=== PATIENT | male | born 1985 | race Two or more races ===

== ENCOUNTER 2022-02-03 11:13 | Emergency (ER) | payer MEDICARE, MEDICAID, SELFPAY ==
--- NOTE | ~2022-02-03 | US_ITS ---
EXAMINATION: US SCROTUM CLINICAL INFORMATION: Testicular pain left. COMPARISON: None TECHNIQUE: A sonogram of the scrotum was performed assessing montoya-scale appearance and color Doppler flow. Spectral Doppler analysis of the arterial and venous flow were performed in the testes bilaterally. FINDINGS: The right testicle is measuring 3 x 2 x 2.7 cm. Volume 8 mL. The left testicle is measuring 3.2 x 2.1 x 3 cm. Volume 10 mL. Importantly the testicular vascularity is present bilaterally and is felt to be equal. There is no evidence of a testicular mass. No suspicious intratesticular fluid collection is seen. The images submitted of the epididymal structures are grossly within normal limits. There are bilateral small hydroceles present. US/US scrotum IMPRESSION: Bilateral small hydroceles are present. Importantly the testicles appear to be within normal limits.
--- NOTE | ~2022-02-03 | US_ITS ---
EXAMINATION: US SCROTUM CLINICAL INFORMATION: Testicular pain left. COMPARISON: None TECHNIQUE: A sonogram of the scrotum was performed assessing montoya-scale appearance and color Doppler flow. Spectral Doppler analysis of the arterial and venous flow were performed in the testes bilaterally. FINDINGS: The right testicle is measuring 3 x 2 x 2.7 cm. Volume 8 mL. The left testicle is measuring 3.2 x 2.1 x 3 cm. Volume 10 mL. Importantly the testicular vascularity is present bilaterally and is felt to be equal. There is no evidence of a testicular mass. No suspicious intratesticular fluid collection is seen. The images submitted of the epididymal structures are grossly within normal limits. There are bilateral small hydroceles present. US/US scrotum doppler IMPRESSION: Bilateral small hydroceles are present. Importantly the testicles appear to be within normal limits.
--- NOTE | ~2022-02-03 | XR_ITS ---
EXAMINATION: XR ELBOW, RIGHT CLINICAL INFORMATION: Mass right elbow. COMPARISON: None TECHNIQUE: AP, lateral, and oblique views of the right elbow. FINDINGS: There is mild soft tissue thickening along the olecranon process, likely cellulitis or edema. No additional soft tissue abnormality seen. No acute fracture or joint effusion. Alignment is anatomic. Joint spaces are maintained. XR/XR elbow RT 2V IMPRESSION: Soft tissue thickening along the olecranon process/posterior elbow likely cellulitis. No focal lesion seen.
--- NOTE | ~2022-02-03 | CT_ITS ---
Indication: Trauma EXAMINATION: Multiple studies, CT cervical spine, CT brain, CT lumbar and thoracic spine. Axial imaging with coronal and sagittal reformatted images. This CT examination was performed using dose optimization techniques as appropriate, variously including the following: *Automated exposure control *Adjustment of mA and/or kV according to patient size (this includes techniques or standardized protocols for targeted exams where dose is matched to indication/reason for exam; i.e. extremities or head) *Use of iterative reconstruction technique. Radiation dose 895, 767, 847 and 1166. Cervical spine; Limited from motion and patient body habitus involving the mid to lower cervical region. No fracture or dislocation is seen on the imaging submitted. There is reversal of the normal lordosis which may be due to position or spasm. CT brain; No midline shift. No mass effect. There is no hemorrhage. The basal cisterns appear patent. The posterior fossa is grossly within normal limits. No extra-axial collection. There is no fracture on the bone windows. Lumbar sacral spine; Lack of intrathecal contrast limits this exam. Evaluation of disc or nerve roots or cord is not adequately obtained here. There is no evidence for fracture. There is no listhesis or compression injury. Thoracic spine; No fracture is seen. No compression injury. No listhesis. Some early degeneration at the thoracolumbar junction. Some minimal calcification of the posterior disc level at T3-4 is not felt to be acute. Etiology indeterminate CT/CT thoracic spine wo con IMPRESSION: Multiple studies. Some limitation from artifact likely due to motion and patient body habitus. No acute finding on the imaging submitted
--- NOTE | ~2022-02-03 | NM_ITS ---
EXAMINATION: PULMONARY PERFUSION STUDY CLINICAL INFORMATION: Syncope, elevated d-dimer, CTA nondiagnostic. COMPARISON: No previous lung scan is available for comparison. Nondiagnostic CT angiogram of the chest dated 02/03/2022 is available for comparison. TECHNIQUE: Following the intravenous injection of 3.6 mCi Tc-99m MAA, the lungs were imaged in the anterior and posterior, left and right lateral and YI, KELLY, LPO, and RPO projections using a gamma scintillation camera. FINDINGS: No segmental perfusion defects are present. There is homogeneous distribution of activity bilaterally. There are no focal anatomic appearing perfusion defects present. NM/NM pul perfusion IMPRESSION: Normal radionuclide lung perfusion scan.
--- NOTE | ~2022-02-03 | CT_ITS ---
EXAMINATION: CT ANGIOGRAM OF THE CHEST WITH AND WITHOUT CONTRAST (CT PULMONARY ANGIOGRAM FOR PE) CLINICAL INFORMATION: Reason for Exam syncope, sob COMPARISON: None TECHNIQUE: Prior to contrast administration, noncontrast localization images were obtained. Subsequently, multidetector volumetric imaging was performed from the thoracic inlet to below the diaphragms following the administration of 80 mL Omnipaque 350 intravenous contrast. No contrast reaction reported Sagittal, coronal, and MIP oblique sagittal reformatted images were obtained on the CT workstation, uploaded to PACS, and reviewed. This CT examination was performed using dose optimization techniques as appropriate, variously including the following: *Automated exposure control *Adjustment of mA and/or kV according to patient size (this includes techniques or standardized protocols for targeted exams where dose is matched to indication/reason for exam; i.e. extremities or head) *Use of iterative reconstruction technique Total exam dose-length product 596 mGy-cm FINDINGS: QUALITY OF STUDY/CONTRAST BOLUS: Unsatisfactory. No significant residual contrast within the pulmonary arteries. This is a late acquisition. PULMONARY ARTERIES: As described above cannot exclude PE The visualized aorta is grossly within normal limits. The thoracic inlet is felt to be within normal limits. The axillary regions are unremarkable. The partially visualized upper abdominal structures are unremarkable. Centrally there is no bulky adenopathy. Imaging lung marie. Right lung; There is no infiltrate. No effusion. Left lung; There is no infiltrate. There is no effusion. Review of the bone windows does not demonstrate a suspicious finding. CT/CT angio chest PE protocol IMPRESSION: This exam is nondiagnostic for pulmonary embolism. The requisition was obtained late and there is no significant contrast in the pulmonary arteries to allow a diagnosis. No significant infiltrate or effusion is seen. VTE: Nondiagnostic
[2022-02-03 11:42] VITALS: BP 137/86; PULSE 113; RESP 18; TEMP 37.4; O2SAT 97; BMI 42.0
--- NOTE | 2022-02-03 12:02 | PC.NURSE ---
verfied with nurse Violetta, at [facility] pt allergic to Cipro and Seroquel
--- NOTE | 2022-02-03 12:27 | ECG_ITS ---
Test Reason : SYNCOPE Blood Pressure : / mmHG Vent. Rate : 105 BPM Atrial Rate : 105 BPM P-R Int : 146 ms QRS Dur : 070 ms QT Int : 314 ms P-R-T Axes : 047 -14 041 degrees QTc Int : 415 ms Sinus tachycardia Otherwise normal ECG When compared with ECG of 23-JAN-2010 14:34, No significant change was found Referred By: Breanna Colindres Electronically Signed By:NIKO LEIVA
[2022-02-03 13:11] VITALS: BP 115/77; BP 129/77; PULSE 101; PULSE 103
[2022-02-03 13:12] VITALS: BP 115/77; BP 119/75; PULSE 103; PULSE 108; RESP 18; TEMP 37.3; O2SAT 98
[2022-02-03] MEDS: 0.9 % Sodium Chloride 1,000 ML 999 ML IV (13:24)
--- NOTE | 2022-02-03 13:27 | ED.GENADULT ---
HPI - General Adult General Chief complaint: Back Pain/Injury Stated complaint: fall pain from neck to buttocks diff breathing Time Seen by Provider: 02/03/22 11:31 Source: patient Mode of arrival: ambulatory Limitations: no limitations History of Present Illness HPI narrative: 36-year-old male presents for multiple complaints. Patient states that he has had pain from his neck down to his buttocks, for the last 2-3 weeks. At times he feels short of breath from the pain. Patient has also had swelling on his right elbow. States that 4 days ago he was in a hot shower, and he lost consciousness. When he came to he was on the floor. Patient states he has had not had fevers, but has a headache, he feels that his bones ache, he has had chills. For the last 2 days patient has had multiple episodes of diarrhea, tells me he has had 12 episodes of diarrhea in the last 2 days. In addition, patient states he has left testicular pain that has been going on for 2 months. No concerns for STDs. No fever, no leg weakness, no saddle paresthesias, no urinary incontinence or bowel incontinence, no urinary retention, no history of IV drug use, no history of cancer. No abdominal pain, no nausea or vomiting. No chest pain, no shortness of breath. Not currently lightheaded or dizzy. 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 States he used to see pain management and do physical therapy. No spinal surgery. Related Data Previous Rx's Medication Instructions Recorded doxycycline hyclate 100 mg tablet 100 mg PO BID 10 days #20 tabs 02/03/22 ketorolac 10 mg tablet 10 mg PO TID 5 days #15 tabs 02/03/22 Allergies Allergy/AdvReac Type Severity Reaction Status Date / Time ciprofloxacin Allergy Swelling Verified 02/03/22 12:02 quetiapine Allergy Unknown Verified 02/03/22 12:02 Review of Systems Constitutional: Constitutional: Reports body ache(s), Reports chills, Reports fatigue, Denies fever(s), Reports headache(s), Denies malaise and Denies weakness Eyes: Eyes: Denies blurry vision and Denies diplopia ENT: Reports Normal hearing present, Denies vertigo, Denies dizziness, Denies otalgia, Reports headache(s), Denies mouth pain, Denies post nasal drip, Denies sinus pain, Denies sinus pressure, Denies sore throat and Denies throat swelling Cardiovascular: Cardiovascular: Denies chest pain, Denies chest pain at rest, Denies chest pain with activity, Reports syncope, Denies leg edema, Denies lightheadedness, Denies Loss of Consciousness, Denies radiating jaw, neck or arm pain, Denies palpitations and Reports dyspnea (from pain) Respiratory: Respiratory: Denies chest congestion, Denies cough and Reports dyspnea (from pain) Gastrointestinal: Gastrointestinal: Denies abdominal pain, Denies melena, Denies hematochezia, Denies constipation, Denies fecal incontinence, Reports diarrhea and Denies vomiting Genitourinary: Genitourinary: Denies oliguria, Denies dysuria, Denies painful ejaculations, Denies penile discharge, Denies scrotal swelling, Reports testicular pain, Denies urinary hesitancy and Denies urinary incontinence Musculoskeletal: Musculoskeletal: Reports back pain, Reports myalgias, Denies numbness and Reports tingling ( Fingers and toes) Integumentary/Breasts: Skin/Breast: Denies swelling and Denies erythema Neurologic: Reports Normal hearing present, Denies Abnormal speech present, Denies confusion, Denies vertigo, Denies dizziness, Reports syncope, Reports headache(s), Denies numbness, Denies Sensory deficit (Neuro), Reports tingling ( Fingers and toes) and Denies weakness Psychiatric: Psychiatric: Denies anxiety, Denies confusion and Denies depression Endocrine: Endocrine: Reports fatigue and Denies palpitations Allergic/Immunologic: Allergic/Immunologic: Denies throat swelling PMFSH Social History Social History Advance Directives: No Advance Directives Information Provided: No Physical Exam ED Vital Signs: Vital Signs - 24 hr 02/03/22 11:42 02/03/22 13:11 02/03/22 13:12 Temperature 99.3 F 99.1 F Pulse Rate 113 H 101 H 103 H Respiratory Rate 18 18 Blood Pressure 137/86 129/77 115/77 Pulse Oximetry 97 98 Oxygen Delivery Method Room Air Room Air 02/03/22 13:11 02/03/22 13:12 02/03/22 15:06 Temperature 99.5 F Pulse Rate 103 H 108 H 93 Respiratory Rate 18 Blood Pressure 115/77 119/75 148/78 H Pulse Oximetry 99 Oxygen Delivery Method Room Air 02/03/22 16:54 Temperature 99.6 F Pulse Rate 89 Respiratory Rate 18 Blood Pressure 110/55 L Pulse Oximetry 99 Oxygen Delivery Method Room Air BMI result Body Mass Index 42.0 Const General: no acute distress, alert and awake; No confusion Nutritional Appearance: obese Orientation/consciousness: patient oriented x3 and No confusion Limitations: no limitations HENMT Head: Yes normal to inspection, Yes normocephalic and Yes atraumatic Ears: hearing grossly normal bilaterally, external ears normal, TM's normal bilaterally and EAC's normal General nose exam: Normal external nose present Face and sinus: Yes normal facial exam and Yes sinuses nontender Mouth: Normal oral and palatal mucosa present Throat: Yes posterior oropharynx normal Eyes Conjunctivae: conjunctivae normal Pupils: Equal, round and reactive pupils present EOM: EOMs intact bilaterally and No Nystagmus present Neck Neck: Yes full ROM, Yes no lymphadenopathy and Yes supple Resp Effort & Inspection: normal respiratory effort and able to speak in complete sentences Auscultation: clear to auscultation bilaterally, no crackles, no rales, no rhonchi and no wheezes Cardio Rate: regular rate Rhythm: regular rhythm Heart sounds: S1 normal heart sound present and S2 normal heart sound present GI Inspection: Yes normal to inspection Palpation (GI): Soft to palpation, nontender, no guarding and not rigid Percussion: Yes normal to percussion Auscultation: normal bowel sounds Back/Spine/Pelvis Cervical Spine: Cervical spine tenderness Thoracic/Lumbar Spine: paraspinal muscle tenderness on the left and on the right, thoraco-lumbar spasm on the left and on the right, thoracic spinal tenderness, lumbar spinal tenderness and No straight leg raise positive Skin Other: warm, red skin right olecranon process with swelling Neuro General: patient oriented x3 and No confusion Cranial nerves: Yes CN's II-XII intact bilaterally, Yes Facial sensation intact/muscles of mastication intact, Yes Equal, round and reactive pupils present, Yes Normal accommodation reflex present, Yes Bilaterally intact EOM present, Yes Nystagmus not present, Yes Normal facial strength present, Yes Midline tongue present, Yes Normal hearing present, Yes Ability to bilaterally rotate head present, Yes Ability to bilaterally elevate shoulders present and No Nystagmus present Cognition (Neuro): normal cognition Speech: No Abnormal speech present Gait exam (Neuro): Normal gait present Motor exam (neuro): 5/5 motor strength present throughout and Pronator motor function not present Sensory Exam: No Sensory deficit (Neuro) Deep tendon reflexes (DTR's): Right brachioradialis reflex intensity grade: 1+, Left brachioradialis reflex intensity grade: 1+, Right patellar reflex intensity grade: 1+ and Left patellar reflex intensity grade: 1+ Coordination: [id number] test normal and [id number] test normal Romberg Test: Negative Pupils: Normal pupillary reactivity/response: bilateral Extrem General: Yes normal to inspection and Yes full ROM Psych Appearance: grossly normal Affect: normal affect Attitude: cooperative Thought process: Normal thought process present Course Course Course Narrative: 36-year-old male presents with multiple complaints including back pain, syncope, left testicular pain, right elbow pain, diarrhea, headache, chills on exam, patient is tachycardic at 105, afebrile, not hypoxic. Patient has a normal neurological exam EKG shows sinus tachycardia at 105, no ischemia lungs clear to auscultation bilaterally, abdomen soft and nontender, patient is tender along his entire bony spine from cervical spine to lumbar spine, also tender in the soft tissues of his bilateral back patient tender in left testicle, no epididymal masses no scrotum swelling, penile lesions, or discharge noted patient has what looks like olecranon bursitis right elbow with cellulits because patient syncopized, will need to do more extensive workup. Will get head CT, CT C-spine, EKG, troponin, D-dimer, labs, flu, COVID, ultrasound left testicle, test for gonorrhea chlamydia. Patient has negative orthostatics Reevaluation(s) Reevaluation #1: patient has a white blood cell count of 14.8, patient has elevated D-dimer at 408. we need to scan patient to rule out PE Reevaluation #2: multiple CT scans show no acute finding, ultrasound of testicles show bilateral hydroceles x-ray right elbow shows olecranon bursitis and cellulitis CTA is non-diagnostic for pulmonary embolism. Patient has elevated ddimer, history of syncope, will order V/Q scan to rule out PE on repeat exam, patient is afebrile at 99.6. Combined with white count this puts him in the SIRS category, will give Tylenol, get lactic, blood cultures Sepsis suspected at this time 17:28, with low grade fever and elevated WBC count. patient's blood pressures remains stable, with a map of 73 ordered Ancef, fluid bolus, awaiting lactic and results of V/Q scan Discussed with Dr Vega, who did not think patient met sepsis, as no organ dysfunction is identified yet. patient negative for gonorrhea chlamydia. Patient COVID and flu negative. Patient just disclosed that he lifted a heavy table wearing 750 lb with someone else earlier this week awaiting lactic and V/Q scan. If both are negative, will send patient home with doxycycline for cellulitis, follow-up with orthopedics for olecranon bursitis, ketorolac for back sprain and cervical muscle sprain, follow-up with urology for bilateral hydrocele, push fluids, Tylenol, return if symptoms worsen Lactic just returned at 0.6; patient is not septic Signed patient out to Dayna Rocha pending V/Q results. FINDINGS: The right testicle is measuring 3 x 2 x 2.7 cm. Volume 8 mL. The left testicle is measuring 3.2 x 2.1 x 3 cm. Volume 10 mL. Importantly the testicular vascularity is present bilaterally and is felt to be equal. There is no evidence of a testicular mass. No suspicious intratesticular fluid collection is seen. The images submitted of the epididymal structures are grossly within normal limits. There are bilateral small hydroceles present. US/US scrotum IMPRESSION: Bilateral small hydroceles are present. ? Importantly the testicles appear to be within normal limits. Cervical spine; Limited from motion and patient body habitus involving the mid to lower cervical region. No fracture or dislocation is seen on the imaging submitted. There is reversal of the normal lordosis which may be due to position or spasm. CT brain; No midline shift. No mass effect. There is no hemorrhage. The basal cisterns appear patent. The posterior fossa is grossly within normal limits. No extra-axial collection. There is no fracture on the bone windows. Lumbar sacral spine; Lack of intrathecal contrast limits this exam. Evaluation of disc or nerve roots or cord is not adequately obtained here. There is no evidence for fracture. There is no listhesis or compression injury. Thoracic spine; No fracture is seen. No compression injury. No listhesis. Some early degeneration at the thoracolumbar junction. Some minimal calcification of the posterior disc level at T3-4 is not felt to be acute. Etiology indeterminate CT/CT cervical spine wo con IMPRESSION: Multiple studies. Some limitation from artifact likely due to motion and patient body habitus. No acute finding on the imaging submitted FINDINGS: There is mild soft tissue thickening along the olecranon process, likely cellulitis or edema. No additional soft tissue abnormality seen. No acute fracture or joint effusion. Alignment is anatomic. Joint spaces are maintained.? XR/XR elbow RT 2V IMPRESSION: Soft tissue thickening along the olecranon process/posterior elbow likely cellulitis. No focal lesion seen. CT/CT angio chest PE protocol IMPRESSION: This exam is nondiagnostic for pulmonary embolism. The requisition was obtained late and there is no significant contrast in the pulmonary arteries to allow a diagnosis. ? No significant infiltrate or effusion is seen. ? VTE: Nondiagnostic Medical Decision Making Lab Data Result diagrams: 02/03/22 13:24 02/03/22 13:24 Labs: Lab Results 02/03/22 02/03/22 02/03/22 Range/Units 13:24 13:24 13:24 WBC 14.8 H (4.8-10.8) X10*3/uL RBC 5.41 (4.60-5.80) X10*6/uL Hgb 15.2 (14.0-18.0) g/dl Hct 47.0 (42.0-52.0) % MCV 86.9 (80.0-98.0) fL MCH 28.1 (27.0-33.0) pg MCHC 32.3 (31.0-36.0) g/dl RDW 13.7 (11.0-16.0) % Plt Count 264 (160-400) X10*3/uL MPV 9.9 (9.4-12.4) fL Immature Gran % (Auto) 1.1 H (0.0-0.4) % Neut % (Auto) 85.4 H (45-73) % Lymph % (Auto) 6.4 L (20-40) % Banner % (Auto) 6.1 (2-11) % Eos % (Auto) 0.5 (0-4) % Baso % (Auto) 0.5 (0-2) % Lymph # (Auto) 1.0 L (1.2-4.9) X10*3/uL Banner # (Auto) 0.9 (0.1-1.2) X10*3/uL Eos # (Auto) 0.1 (0.0-0.4) X10*3/uL Baso # (Auto) 0.1 (0.0-0.2) X10*3/uL Abs Immat Gran (auto) 0.16 H (0.00-0.03) X10*3/uL Absolute Neuts (auto) 12.7 H (2.0-8.3) x10*3/uL Absolute Nucleated RBC 0.000 (0.0-0.012) X10*3/uL Nucleated RBC % (auto) 0.0 (0.0-0.2) /100WBC D-Dimer High Sensitivty 406 NG/ML Sodium 137 (135-145) mmol/L Potassium 4.5 (3.3-5.1) mmol/L Chloride 104 (96-108) mmol/L Carbon Dioxide 25 (22-29) mmol/L Anion Gap 13 (12-20) BUN 8 L (9-16) mg/dL Creatinine 1.00 (0.5-1.4) mg/dL Estim Creat Clear Calc 129.9 Estimated GFR > 60 Random Glucose 95 (60-115) mg/dL Lactic Acid (0.5-2.0) mmol/L Calcium 8.7 (8.4-10.2) mg/dL Total Bilirubin 1.2 H (0.0-1.0) mg/dL AST 13 (5-37) U/L ALT 14 (0-40) U/L Alkaline Phosphatase 122 H (39-117) U/L Troponin I High Sens (<3.5-35.0) ng/L Total Protein 6.7 (6.5-8.0) g/dL Albumin 4.1 (3.5-5.0) g/dL Urine Color Urine Appearance Urine pH (5.0-8.0) Ur Specific [place] (1.005-1.025) Urine Protein (NEG-TRACE) MG/DL Urine Glucose (UA) (NEG) MG/DL Urine Ketones (NEG) MG/DL Urine Blood (NEG) Urine Nitrite (NEG) Ur Leukocyte Esterase (NEG) Chlam trachomat DNA PCR (Not Detect.) COVID-19 (ALEJANDRINA) (Negative) COVID-19 Clin Com Influenza Type A (KUMAR) (Negative) Influenza Type B (KUMAR) (Negative) Influenza A & B Note N.gonorrhoeae DNA (PCR) (Not Detect.) 02/03/22 02/03/22 02/03/22 Range/Units 13:24 13:24 13:24 WBC (4.8-10.8) X10*3/uL RBC (4.60-5.80) X10*6/uL Hgb (14.0-18.0) g/dl Hct (42.0-52.0) % MCV (80.0-98.0) fL MCH (27.0-33.0) pg MCHC (31.0-36.0) g/dl RDW (11.0-16.0) % Plt Count (160-400) X10*3/uL MPV (9.4-12.4) fL Immature Gran % (Auto) (0.0-0.4) % Neut % (Auto) (45-73) % Lymph % (Auto) (20-40) % Banner % (Auto) (2-11) % Eos % (Auto) (0-4) % Baso % (Auto) (0-2) % Lymph # (Auto) (1.2-4.9) X10*3/uL Banner # (Auto) (0.1-1.2) X10*3/uL Eos # (Auto) (0.0-0.4) X10*3/uL Baso # (Auto) (0.0-0.2) X10*3/uL Abs Immat Gran (auto) (0.00-0.03) X10*3/uL Absolute Neuts (auto) (2.0-8.3) x10*3/uL Absolute Nucleated RBC (0.0-0.012) X10*3/uL Nucleated RBC % (auto) (0.0-0.2) /100WBC D-Dimer High Sensitivty NG/ML Sodium (135-145) mmol/L Potassium (3.3-5.1) mmol/L Chloride (96-108) mmol/L Carbon Dioxide (22-29) mmol/L Anion Gap (12-20) BUN (9-16) mg/dL Creatinine (0.5-1.4) mg/dL Estim Creat Clear Calc Estimated GFR Random Glucose (60-115) mg/dL Lactic Acid (0.5-2.0) mmol/L Calcium (8.4-10.2) mg/dL Total Bilirubin (0.0-1.0) mg/dL AST (5-37) U/L ALT (0-40) U/L Alkaline Phosphatase (39-117) U/L Troponin I High Sens 6.6 (<3.5-35.0) ng/L Total Protein (6.5-8.0) g/dL Albumin (3.5-5.0) g/dL Urine Color Urine Appearance Urine pH (5.0-8.0) Ur Specific [place] (1.005-1.025) Urine Protein (NEG-TRACE) MG/DL Urine Glucose (UA) (NEG) MG/DL Urine Ketones (NEG) MG/DL Urine Blood (NEG) Urine Nitrite (NEG) Ur Leukocyte Esterase (NEG) Chlam trachomat DNA PCR (Not Detect.) COVID-19 (ALEJANDRINA) Negative (Negative) COVID-19 Clin Com See Note Influenza Type A (KUMAR) Negative (Negative) Influenza Type B (KUMAR) Negative (Negative) Influenza A & B Note See Note N.gonorrhoeae DNA (PCR) (Not Detect.) 02/03/22 02/03/22 02/03/22 Range/Units 13:53 13:53 18:28 WBC (4.8-10.8) X10*3/uL RBC (4.60-5.80) X10*6/uL Hgb (14.0-18.0) g/dl Hct (42.0-52.0) % MCV (80.0-98.0) fL MCH (27.0-33.0) pg MCHC (31.0-36.0) g/dl RDW (11.0-16.0) % Plt Count (160-400) X10*3/uL MPV (9.4-12.4) fL Immature Gran % (Auto) (0.0-0.4) % Neut % (Auto) (45-73) % Lymph % (Auto) (20-40) % Banner % (Auto) (2-11) % Eos % (Auto) (0-4) % Baso % (Auto) (0-2) % Lymph # (Auto) (1.2-4.9) X10*3/uL Banner # (Auto) (0.1-1.2) X10*3/uL Eos # (Auto) (0.0-0.4) X10*3/uL Baso # (Auto) (0.0-0.2) X10*3/uL Abs Immat Gran (auto) (0.00-0.03) X10*3/uL Absolute Neuts (auto) (2.0-8.3) x10*3/uL Absolute Nucleated RBC (0.0-0.012) X10*3/uL Nucleated RBC % (auto) (0.0-0.2) /100WBC D-Dimer High Sensitivty NG/ML Sodium (135-145) mmol/L Potassium (3.3-5.1) mmol/L Chloride (96-108) mmol/L Carbon Dioxide (22-29) mmol/L Anion Gap (12-20) BUN (9-16) mg/dL Creatinine (0.5-1.4) mg/dL Estim Creat Clear Calc Estimated GFR Random Glucose (60-115) mg/dL Lactic Acid 0.6 (0.5-2.0) mmol/L Calcium (8.4-10.2) mg/dL Total Bilirubin (0.0-1.0) mg/dL AST (5-37) U/L ALT (0-40) U/L Alkaline Phosphatase (39-117) U/L Troponin I High Sens (<3.5-35.0) ng/L Total Protein (6.5-8.0) g/dL Albumin (3.5-5.0) g/dL Urine Color YELLOW Urine Appearance CLEAR Urine pH 6.5 (5.0-8.0) Ur Specific [place] 1.020 (1.005-1.025) Urine Protein NEG (NEG-TRACE) MG/DL Urine Glucose (UA) NEG (NEG) MG/DL Urine Ketones NEG (NEG) MG/DL Urine Blood NEG (NEG) Urine Nitrite NEG (NEG) Ur Leukocyte Esterase NEG (NEG) Chlam trachomat DNA PCR NOT DETECTED (Not Detect.) COVID-19 (ALEJANDRINA) (Negative) COVID-19 Clin Com Influenza Type A (KUMAR) (Negative) Influenza Type B (KUMAR) (Negative) Influenza A & B Note N.gonorrhoeae DNA (PCR) NOT DETECTED (Not Detect.) ECG Data Interpretation: sinus tachycardia at a rate of 105, VT interval 146, QRS 70, QTC 415, normal axis, no ST depressions or elevations, no T-wave abnormalities Discharge Plan Discharge Clinical Impression: Bilateral hydrocele, Cellulitis, Olecranon bursitis of right elbow, Viral illness, Back pain, Cervical muscle strain Patient Disposition: Still a Patient Instructions: Cervical Strain (ED), Hydrocele (ED), Cellulitis (ED), Elbow Bursitis (ED), Gastroenteritis (ED), Back Pain (ED) Additional Instructions: PLease call orthopedics for a follow up appointment for your right elbow. I have referred you, but if you do not hear from them on Sunday, call them at [phone] I have prescribed antibiotics for you, as you have a skin infectionof your elbow. I have also prescibed ketorolac for your back pain. this medicine ketorolac is similar to ibuprofen, so do not take any ibuprofen while you are taking this, no Motrin, Aleve, Excedrin, nothing with ibuprofen I have also referred you to Urology for your testicular hydroceles. They should be calling you, you do not hear from them, please call them at the following number [phone] please drink fluids, take Tylenol, rest, return to emergency room for any new or concerning symptoms Prescriptions: New doxycycline hyclate 100 mg tablet 100 mg PO BID 10 Days Qty: 20 0RF ketorolac 10 mg tablet 10 mg PO TID 5 Days Qty: 15 0RF Referrals: Jermaine Gordon MD [Physician] - Shemar Harris MD [Physician] -
[2022-02-03 13:30] LABS: MANUAL DIFF FLAG NO
[2022-02-03 13:34] LABS: Basophils Absolute Auto 0.1 X10*3/uL (0.0-0.2); Basophils Percent Auto 0.5 % (0-2); Eosinophils Absolute Auto 0.1 X10*3/uL (0.0-0.4); Eosinophils Percent Auto 0.5 % (0-4); Hemoglobin 15.2 g/dl (14.0-18.0); Imm Gran Abs Auto 0.16 X10*3/uL (0.00-0.03); Imm Gran Pct Auto 1.1 % (0.0-0.4); Lymphocytes Percent Auto 6.4 % (20-40); Mean Corpuscular HGB Conc 32.3 g/dl (31.0-36.0); Mean Corpuscular Hemoglobin 28.1 pg (27.0-33.0); Mean Corpuscular Volume 86.9 fL (80.0-98.0); Mean Platelet Volume 9.9 fL (9.4-12.4); Monocytes Absolute Auto 0.9 X10*3/uL (0.1-1.2); Monocytes Percent Auto 6.1 % (2-11); Neutrophils Absolute Auto 12.7 x10*3/uL (2.0-8.3); Neutrophils Percent Auto 85.4 % (45-73); Platelet Count 264 X10*3/uL (160-400); Red Blood Count 5.41 X10*6/uL (4.60-5.80); Red Cell Distribution Width 13.7 % (11.0-16.0); White Blood Count 14.8 X10*3/uL (4.8-10.8)
[2022-02-03 13:40] LABS: D Dimer High Sensitivity 406 NG/ML
[2022-02-03 13:45] LABS: COVID-19 Test Negative (Negative); IDNOW Serial# 16C4AD1C
[2022-02-03 13:46] LABS: Influenza A Negative (Negative); Influenza B2 Negative (Negative)
[2022-02-03] MEDS: oxyCODONE HCl Immed Release 5 MG TABLET PO (13:52)
[2022-02-03 13:53] LABS: Alanine Aminotransferase 14 U/L (0-40); Albumin Level 4.1 g/dL (3.5-5.0); Alkaline Phosphatase 122 U/L (39-117); Anion Gap 13 (12-20); Aspartate Amino Transferase 13 U/L (5-37); Bilirubin Total 1.2 mg/dL (0.0-1.0); Blood Urea Nitrogen 8 mg/dL (9-16); Calcium 8.7 mg/dL (8.4-10.2); Carbon Dioxide 25 mmol/L (22-29); Chloride 104 mmol/L (96-108); Creatinine Clr Calc Pharmacy 129.9; Estimated Glomerular Filt Rate > 60; Glucose Random 95 mg/dL (60-115); Potassium 4.5 mmol/L (3.3-5.1); Sodium 137 mmol/L (135-145); Total Protein 6.7 g/dL (6.5-8.0)
[2022-02-03 13:59] LABS: Troponin-I High Sensitivity 6.6 ng/L (<3.5-35.0)
[2022-02-03 14:00] LABS: Appearance Urine CLEAR; Color Urine YELLOW; Glucose Urine UA NEG (NEG); Leukocyte Esterase Urine NEG (NEG); Nitrite Urine NEG (NEG); PH 6.5 (5.0-8.0); Urine Blood NEG (NEG); Urine Ketones NEG (NEG); Urine Protein NEG (NEG-TRACE)
[2022-02-03 15:06] VITALS: BP 148/78; PULSE 93; RESP 18; TEMP 37.5; O2SAT 99
[2022-02-03] MEDS: iohexoL 350 MG/ML 100 ML INFUS..BTL IV (15:42)
[2022-02-03 15:57] LABS: CT PCR NOT DETECTED (Not Detect.); NG PCR NOT DETECTED (Not Detect.)
[2022-02-03 16:54] VITALS: BP 110/55; PULSE 89; RESP 18; TEMP 37.6; O2SAT 99
[2022-02-03] MEDS: Ketorolac Tromethamine 30 MG/ML VIAL IVPUSH (17:47)
[2022-02-03 18:58] LABS: Lactic Acid 0.6 mmol/L (0.5-2.0)
[2022-02-03 20:20] LABS: C Reactive Protein 4.53 mg/dL (< or = 0.50)
[2022-02-03 20:32] LABS: Uric Acid 6.1 mg/dL (3.4-7.0)
[2022-02-03] MEDS: Indomethacin 25 MG CAPSULE 50 MG PO (21:06)
[2022-02-03] MEDS: Amoxicillin/Potassium Clav 875 MG TABLET PO (21:07)
== END 2022-02-03 21:44 | disposition home or self-care (01) ==
PROVIDERS: Nurse Practitioner Family; Physician Assistant; Emergency Provider Emergency Medicine
DX: S16.1XXA Strain of muscle, fascia and tendon at neck level, initial encounter (principal); M70.21 Olecranon bursitis, right elbow; L03.113 Cellulitis of right upper limb; B34.9 Viral infection, unspecified; N43.3 Hydrocele, unspecified; M54.9 Dorsalgia, unspecified; Z87.39 Personal history of other diseases of the musculoskeletal system and connective tissue; Z20.822 Contact with and (suspected) exposure to COVID-19; W18.30XA Fall on same level, unspecified, initial encounter; Y93.E1 Activity, personal bathing and showering; Y92.9 Unspecified place or not applicable; Y99.9 Unspecified external cause status
CPT/HCPCS: 36415; 70450; 71275; 72125; 72128; 72131; 73070; 76870; 78580; 80053; 81003; 83605; 84484; 84550; 85025; 85379; 86140; 87040; 87491; 87502; 87591; 87635; 93005; 93975; 96361; 96374; 99284; A9540; J1885; Q9967